=== PATIENT | female | born 2000 | race Caucasian/White ===

== ENCOUNTER → 2018-05-05 | Outpatient (CLI) | payer OTHER | LOC: M CARPUL 08:15 | DX: R01.1 Cardiac murmur, unspecified (principal) | CPT/HCPCS: 93306 ==

== ENCOUNTER → 2019-11-19 | Outpatient (CLI) | payer OTHER ==
[~2019-11-19] MED LIST: CELE20TA PO; DICY10CA13 PO; HYDR-3363 PO; MIRE1IUD IU; OMEP-218 PO
== END ==
LOC: M LABSMTC 11:18
PROVIDERS: ATTEND Anesthesiology
DX: Z01.818 Encounter for other preprocedural examination (principal); Z11.59 Encounter for screening for other viral diseases
CPT/HCPCS: C9803; U0003

== ENCOUNTER 2019-11-22 08:07 | Day surgery (SDC) | payer OTHER ==
[~2019-11-22] VITALS: Ht 152.4 cm; Wt 55.8 kg
[~2019-11-22 08:07] MED LIST changes: +LIDOCAINE 2% 100MG/5ML SDV (FOR ANES.) As Ordered ONE; +NS 1,000 ML IV ONE; +fentaNYL 100 MCG/2 ML INJECTION (J3010) As Ordered ONE; +propofoL 200 MG/20 ML VIAL As Ordered ONE
--- NOTE | 2019-11-22 09:51 | ROOR ---
Patient Name: Rylee Marte Procedure Date: 11/22/2019 9:37 AM Date of : 2000 Age: 19 Room: [facility] Gender: Female Note Status: Finalized Procedure: Upper GI endoscopy Indications: Epigastric abdominal pain, Heartburn, Nausea Providers: Juan GALAVIZ MD Referring MD: Ligia MARCUM MD Requesting Provider: Medicines: Monitored Anesthesia Care Complications: No immediate complications. Procedure: Pre-Anesthesia Assessment: - The heart rate, respiratory rate, oxygen saturations, blood pressure, adequacy of pulmonary ventilation, and response to care were monitored throughout the procedure. The Endoscope was introduced through the mouth, and advanced to the second part of duodenum. The upper GI endoscopy was accomplished without difficulty. The patient tolerated the procedure well. Findings: The esophagus was normal. The stomach was normal. (compliant) The examined duodenum was normal. Biopsies for histology were taken with a cold forceps in the second portion of the duodenum and in the third portion of the duodenum for evaluation of celiac disease. Impression: - Normal esophagus. - Normal stomach. - Normal examined duodenum. - Biopsies were taken with a cold forceps for evaluation of celiac disease. Recommendation: - Observe patient's clinical course. - Continue present medications. - Return to referring physician as previously scheduled. - Telephone endoscopist for pathology results in 2 weeks. Juan Galaviz MD Juan GALAVIZ MD 11/22/2019 9:51:34 AM Electronically signed by Juan GALAVIZ MD Number of Addenda: 0 Note Initiated On: 11/22/2019 9:37 AM Estimated Blood Loss: Estimated blood loss: none.
--- NOTE | 2019-11-22 10:09 | ROOR ---
Patient Name: Rylee Marte Procedure Date: 11/22/2019 9:38 AM Date of : 2000 Age: 19 Room: OP03 Gender: Female Note Status: Finalized Procedure: Colonoscopy Indications: Hematochezia, Suspected irritable bowel syndrome, Irritable bowel syndrome with constipation Providers: Juan GALAVIZ MD Referring MD: Ligia MARCUM MD Requesting Provider: Medicines: Monitored Anesthesia Care Complications: No immediate complications. Procedure: Pre-Anesthesia Assessment: - The heart rate, respiratory rate, oxygen saturations, blood pressure, adequacy of pulmonary ventilation, and response to care were monitored throughout the procedure. The Colonoscope was introduced through the anus and advanced to 10 cm into the ileum. The colonoscopy was somewhat difficult due to inadequate bowel prep. Successful completion of the procedure was aided by lavage. The colonoscopy was performed without difficulty. Findings: The perianal and digital rectal examinations were normal. Internal hemorrhoids were found during retroflexion. The hemorrhoids were medium-sized. Retroflexion in the right colon was performed. The colon (entire examined portion) appeared normal. The terminal ileum appeared normal. (EXAM: Complete, PREP: Suboptimal) Impression: - (EXAM: Complete, PREP: Suboptimal) - Internal hemorrhoids. - The entire examined colon is normal. - The examined portion of the ileum was normal. - No specimens collected. (- Irritable bowel with constipation (IBS-C) suspected). Recommendation: - Repeat colonoscopy in 2 years because the bowel preparation was suboptimal. - Miralax 1 capful (17 grams) in 8 ounces of water twice a day indefinitely. - (the script was sent to your pharmacy on file) - Return to referring physician as previously scheduled. Juan Galaviz MD Juan GALAVIZ MD 11/22/2019 10:09:33 AM Electronically signed by Juan GALAVIZ MD Number of Addenda: 0 Note Initiated On: 11/22/2019 9:38 AM Estimated Blood Loss: Estimated blood loss: none.
[2019-11-22 10:33] VITALS: BP 105/61
== END 2019-11-22 10:48 | disposition home or self-care (01) ==
LOC: M OPP 08:07
PROVIDERS: ATTEND Internal Medicine Gastroenterology
DX: K58.1 Irritable bowel syndrome with constipation (principal); K92.1 Melena; K64.8 Other hemorrhoids; R10.13 Epigastric pain; Z79.3 Long term (current) use of hormonal contraceptives; Z79.899 Other long term (current) drug therapy
CPT/HCPCS: 43239; 45378; 88305; J3010

== ENCOUNTER → 2019-11-29 | Outpatient (CLI) | payer OTHER ==
[~2019-11-29] MED LIST changes: -LIDOCAINE 2% 100MG/5ML SDV (FOR ANES.) As Ordered ONE; -NS 1,000 ML IV ONE; -fentaNYL 100 MCG/2 ML INJECTION (J3010) As Ordered ONE; -propofoL 200 MG/20 ML VIAL As Ordered ONE
--- NOTE | 2019-11-29 10:55 | REP ---
REASON FOR EXAM: Nausea, vomiting, right upper quadrant pain. PRIORS: None. After the intravenous administration of 6.6 millicuries of technetium 99m Choletec, hepatobiliary imaging was performed with gallbladder ejection fraction calculation. The gallbladder is promptly visualized in 10 minutes. The distribution of the radiotracer throughout the hepatocytes is within normal limits. Biliary to bowel transport is normal at 20 minutes. The gallbladder ejection fraction calculation is 70%. This is normal. IMPRESSION: Normal exam. Electronically Signed by Deyvi Lowry DO 11/29/2019 04:01 P
== END ==
LOC: M RAD 07:45
PROVIDERS: ATTEND Internal Medicine Gastroenterology
DX: K82.8 Other specified diseases of gallbladder (principal); R11.0 Nausea; R10.11 Right upper quadrant pain
CPT/HCPCS: 78227; A9537